=== PATIENT | female | born 1955 | race Caucasian/White ===

== ENCOUNTER 2017-06-19 11:10 | Emergency (ER) | payer MEDICAID, SELFPAY ==
[2017-06-19 12:13] VITALS: BP 133/70; PULSE 89; RESP 20; TEMP 36.6; O2SAT 94; BMI 29.6
--- NOTE | 2017-06-19 13:12 | HMH.EDUTC ---
[facility] [place]: Influenza Right lower lobe pneumonia Qualifiers: Pneumonia type: due to unspecified organism Qualified Code(s): J18.1 - Lobar pneumonia, unspecified organism Disposition: Home, Self-Care Condition on Discharge: Good Instructions: Pneumonia-Adult Additional Instructions: Drink lots of fluids and take Tylenol or Ibuprofen for fever and aches and pains Prescriptions: Oseltamivir Phosphate [Tamiflu 75mg Capsule] 75 mg PO BID 5 Days #10 capsule Referrals: Jimbo Vital MD [Primary Care Provider] - Medical Decision Making Vital Signs: 06/19/17 12:13 06/19/17 14:45 06/19/17 16:44 Temperature 98 F 99.2 F 98.6 F Temperature Source Temporal Artery Scan Oral Oral Pulse Rate Pulse Rate [Right Radial] 89 110 H 83 Respiratory Rate 20 18 20 Blood Pressure Blood Pressure [Right Arm] 133/70 110/72 102/58 Blood Pressure Mean [Right Arm] 91 84 72 Blood Pressure Source Blood Pressure Source [Right Arm] Automatic Cuff Automatic Cuff Automatic Cuff Blood Pressure Position Blood Pressure Position [Right Arm] Sitting Sitting Sitting 02 Sat by Pulse Oximetry 94 L 92 L 94 L Oxygen Delivery Method Room Air Room Air Room Air 06/19/17 16:58 Temperature 98.6 F Temperature Source Oral Pulse Rate 76 Pulse Rate [Right Radial] Respiratory Rate 20 Blood Pressure 116/75 Blood Pressure [Right Arm] Blood Pressure Mean [Right Arm] Blood Pressure Source Automatic Cuff Blood Pressure Source [Right Arm] Blood Pressure Position Sitting Blood Pressure Position [Right Arm] 02 Sat by Pulse Oximetry Oxygen Delivery Method Room Air - Lab Data Lab Results 06/19/17 13:35: WBC 21.0 H*, RBC 4.75, Hgb 13.7, Hct 41.2, MCV 86.7, MCH 28.8, MCHC 33.2, RDW 12.8, Plt Count 238, MPV 7.7, Neut % (Auto) 88.2 H, Lymph % (Auto) 5.9 L, [place] % (Auto) 5.5, Eos % (Auto) 0.2, Baso % (Auto) 0.2, Neut # (Auto) 18.5 H, Lymph # (Auto) 1.2, [place] # (Auto) 1.2 H, Eos # (Auto) 0.1, Baso # (Auto) 0.0, Total Counted 100, Neutrophils % (Manual) 82 H, Band Neutrophils % 5.0, Lymphocytes % (Manual) 3 L, Atypical Lymphs % 1.0, Monocytes % (Manual) 8, Eosinophils % (Manual) 1, Platelet Estimate Normal, RBC Morphology Normal 06/19/17 13:35: Sodium 133 L, Potassium 3.3 L, Chloride 95 L, Carbon Dioxide 28, Anion Gap 13.3, BUN 7, Creatinine 0.93, Estimated Creat Clear 66, Estimated GFR > 60, Est GFR ( Amer) > 60, Glucose 159 H 06/19/17 13:35: Lactic Acid 1.0 Result diagrams: 06/19/17 13:35 06/19/17 13:35 Orders (Tests/Meds): ED MEDICATIONS Discontinued Medications Generic Name Dose Route Start Last Admin Trade Name Freq PRN Reason Stop Dose Admin Sodium Chloride 1,000 mls @ 999 mls/hr 06/19/17 14:45 06/19/17 15:21 Sod Chloride 0.9% 1000ml Bag IV 06/19/17 15:45 999 mls/hr .Q1H1M AQUILINO Administration Levofloxacin/Dextrose 500 mg in 100 mls @ 100 mls/hr 06/19/17 14:45 06/19/17 15:23 Levaquin 500mg/100ml Premix IV 07/03/17 14:44 100 mls/hr Q24H AQUILINO Administration ORDERS Category Date Time Status Blood Culture Stat Micro 06/19/17 15:00 Received - Radiology Data #1 Image(s): Chest Image Reviewed: Yes I reviewed the patient's radiology image, Yes I have reviewed radiologist's interpretation RLL pneumonia - Physician Consults Physician Consulted: Dr. Baer, environmental professional for PCP, Dr Vital Time: 14:10 Reason -: Pt condition Comment/Response: Discussed PMHx, HPI, exam, labs, CXR. Pt needs 1L fluids, IV solu medrol and IV antibiotic. If looking better, discharge home on po antibiotics with FU Wednesday. Additional Consult: Dr. Alvarez, ER Time: 14:15 Reason -: Pt condition Comment/Response: Discussed PMHx, HPI, exam, labs, CXR. Aware of discussion w/ Dr. Baer. Pt needs 1L fluids, IV solu medrol and IV antibiotic. If looking better, discharge home on po antibiotics with FU Wednesday. - Javier Inquiry Pt receiving controlled substance: No - Reevaluation(s) Time: 14:28
--- NOTE | 2017-06-19 13:18 | ED_ITS ---
[facility] [place]: Influenza Right lower lobe pneumonia Qualifiers: Pneumonia type: due to unspecified organism Qualified Code(s): J18.1 - Lobar pneumonia, unspecified organism Disposition: Home, Self-Care Condition on Discharge: Good Instructions: Pneumonia-Adult Additional Instructions: Drink lots of fluids and take Tylenol or Ibuprofen for fever and aches and pains Prescriptions: Oseltamivir Phosphate [Tamiflu 75mg Capsule] 75 mg PO BID 5 Days #10 capsule Referrals: Jimbo Vital MD [Primary Care Provider] - Medical Decision Making Vital Signs: 06/19/17 12:13 06/19/17 14:45 06/19/17 16:44 Temperature 98 F 99.2 F 98.6 F Temperature Source Temporal Artery Scan Oral Oral Pulse Rate Pulse Rate [Right Radial] 89 110 H 83 Respiratory Rate 20 18 20 Blood Pressure Blood Pressure [Right Arm] 133/70 110/72 102/58 Blood Pressure Mean [Right Arm] 91 84 72 Blood Pressure Source Blood Pressure Source [Right Arm] Automatic Cuff Automatic Cuff Automatic Cuff Blood Pressure Position Blood Pressure Position [Right Arm] Sitting Sitting Sitting 02 Sat by Pulse Oximetry 94 L 92 L 94 L Oxygen Delivery Method Room Air Room Air Room Air 06/19/17 16:58 Temperature 98.6 F Temperature Source Oral Pulse Rate 76 Pulse Rate [Right Radial] Respiratory Rate 20 Blood Pressure 116/75 Blood Pressure [Right Arm] Blood Pressure Mean [Right Arm] Blood Pressure Source Automatic Cuff Blood Pressure Source [Right Arm] Blood Pressure Position Sitting Blood Pressure Position [Right Arm] 02 Sat by Pulse Oximetry Oxygen Delivery Method Room Air - Lab Data Lab Results 06/19/17 13:35: WBC 21.0 H*, RBC 4.75, Hgb 13.7, Hct 41.2, MCV 86.7, MCH 28.8, MCHC 33.2, RDW 12.8, Plt Count 238, MPV 7.7, Neut % (Auto) 88.2 H, Lymph % (Auto ) 5.9 L, [place] % (Auto) 5.5, Eos % (Auto) 0.2, Baso % (Auto) 0.2, Neut # (Auto) 18.5 H, Lymph # (Auto) 1.2, [place] # (Auto) 1.2 H, Eos # (Auto) 0.1, Baso # (Auto ) 0.0, Total Counted 100, Neutrophils % (Manual) 82 H, Band Neutrophils % 5.0, Lymphocytes % (Manual) 3 L, Atypical Lymphs % 1.0, Monocytes % (Manual) 8, Eosinophils % (Manual) 1, Platelet Estimate Normal, RBC Morphology Normal 06/19/17 13:35: Sodium 133 L, Potassium 3.3 L, Chloride 95 L, Carbon Dioxide 28 , Anion Gap 13.3, BUN 7, Creatinine 0.93, Estimated Creat Clear 66, Estimated GFR > 60, Est GFR ( Amer) > 60, Glucose 159 H 06/19/17 13:35: Lactic Acid 1.0 Result diagrams: 06/19/17 13:35 06/19/17 13:35 Orders (Tests/Meds): ED MEDICATIONS Discontinued Medications Generic Name Dose Route Start Last Admin Trade Name Freq PRN Reason Stop Dose Admin Sodium Chloride 1,000 mls @ 999 mls/hr 06/19/17 14:45 06/19/17 15:21 Sod Chloride 0.9% 1000ml Bag IV 06/19/17 15:45 999 mls/hr .Q1H1M AQUILINO Administration Levofloxacin/Dextrose 500 mg in 100 mls @ 100 mls/hr 06/19/17 14:45 06/19/17 15:23 Levaquin 500mg/100ml Premix IV 07/03/17 14:44 100 mls/hr Q24H AQUILINO Administration ORDERS Category Date Time Status Blood Culture Stat Micro 06/19/17 15:00 Received - Radiology Data #1 Image(s): Chest Image Reviewed: Yes I reviewed the pat
--- NOTE | 2017-06-19 13:18 | XR_ITS ---
XR chest 2V HISTORY: Cough and fever ITS.REASON: flu + earlier in the week, now cough and fever new ORDERING PHYSICIAN: Efra Hawley PATIENT AGE: 61 years COMPARISON: None available FINDINGS: The cardiomediastinal silhouette and pulmonary vascularity are within normal limits. There is consolidation in the right lower lobe anteriorly and to a lesser degree posteriorly consistent with pneumonia. No obvious effusions. No acute bony abnormalities. IMPRESSION: Right lower lobe pneumonia
[2017-06-19 13:45] LABS: Basophils % 0.2 % (0.1-2.0); Eosinophils # 0.1 K/mm3 (0.0-0.4); Eosinophils % 0.2 % (0.1-12.0); Hematocrit 41.2 % (37.0-47.0); Hemoglobin 13.7 g/dL (12.2-16.2); Lymphocytes # 1.2 K/mm3 (0.7-4.5); Lymphocytes % 5.9 K/mm3 (10-50); Mean Corpuscular HGB Conc 33.2 g/dL (31.8-35.4); Mean Corpuscular Hemoglobin 28.8 pg (27.0-31.2); Mean Corpuscular Volume 86.7 fl (81-99); Mean Platelet Volume 7.7 fl (7.4-10.4); Monocytes # 1.2 K/mm3 (0.1-1.0); Monocytes % 5.5 % (1.7-9.3); Neutrophils # 18.5 K/mm3 (1.8-7.8); Neutrophils % 88.2 % (37.0-80.0); Platelet Count 238 K/mm3 (142-424); Red Blood Count 4.75 M/mm3 (4.20-5.40); Red Cell Distribution Width 12.8 % (11.5-17.5)
[2017-06-19 13:47] LABS: MANUAL DIFFERENTIAL MANUAL DIFFERENTIAL (MANUAL DIFF)
[2017-06-19 13:50] LABS: Anion Gap 13.3 mEq/L (5-15); Blood Urea Nitrogen 7 mg/dL (7-18); Carbon Dioxide 28 mmol/L (21.0-32.0); Chloride 95 mmol/L (98-107); Creatinine Clearance Estimated 66 mL/min (0-300); Creatinine,Serum 0.93 mg/dL (0.55-1.02); Estimated Glomerular Filt Rate > 60 ml/min (>60); GFR (African American) > 60 ML/MIN (>60); Glucose 159 mg/dL (74-106); Potassium 3.3 mmoL/L (3.5-5.1); Sodium 133 mmol/L (136-145)
[2017-06-19 14:29] LABS: Eosinophils % 1 % (0-3); Lymphocytes % 3 % (10-50); Monocytes % 8 % (2-9); Neutrophils % 82 % (42-76); Platelet Estimate Normal; RBC Morphology Normal; Total Cells Counted 100
[2017-06-19 14:45] VITALS: BP 110/72; PULSE 110; RESP 18; TEMP 37.3; O2SAT 92; BMI 28.3
--- NOTE | 2017-06-19 14:52 | PC.NURSE ---
lab at collecting blood cultures
--- NOTE | 2017-06-19 15:22 | HMH.EDGENADL ---
ED Disposition Clinical Impression: Influenza Right lower lobe pneumonia Qualifiers: Pneumonia type: due to unspecified organism Qualified Code(s): J18.1 - Lobar pneumonia, unspecified organism Disposition: Home, Self-Care Condition on Discharge: Fair Instructions: Pneumonia-Adult Additional Instructions: Drink lots of fluids and take Tylenol or Ibuprofen for fever and aches and pains Prescriptions: Oseltamivir Phosphate [Tamiflu 75mg Capsule] 75 mg PO BID 5 Days #10 capsule Referrals: Jimbo Vital MD [Primary Care Provider] - Time of Disposition: 16:30 - Critical Care Critical Care Time: No Attestation: On 06/19/17, the high probability of a clinically significant, sudden or life threatening deterioration of the following system(s) required my full and direct attention, intervention and personal management. The time I documented below is in addition to time spent performing reported procedures but includes the following listed in this critical care notation. Medical Decision Making - Medical Records Medical records reviewed: Yes: I reviewed the patient's medical records. Vital Signs: 06/19/17 12:13 06/19/17 14:45 Temperature 98 F 99.2 F Temperature Source Temporal Artery Scan Oral Pulse Rate [Right Radial] 89 110 H Respiratory Rate 20 18 Blood Pressure [Right Arm] 133/70 110/72 Blood Pressure Mean [Right Arm] 91 84 Blood Pressure Source [Right Arm] Automatic Cuff Automatic Cuff Blood Pressure Position [Right Arm] Sitting Sitting 02 Sat by Pulse Oximetry 94 L 92 L Oxygen Delivery Method Room Air Room Air - Lab Data Lab results reviewed: Yes: I reviewed the patient's lab results. Lab Results 06/19/17 13:35: WBC 21.0 H*, RBC 4.75, Hgb 13.7, Hct 41.2, MCV 86.7, MCH 28.8, MCHC 33.2, RDW 12.8, Plt Count 238, MPV 7.7, Neut % (Auto) 88.2 H, Lymph % (Auto) 5.9 L, [place] % (Auto) 5.5, Eos % (Auto) 0.2, Baso % (Auto) 0.2, Neut # (Auto) 18.5 H, Lymph # (Auto) 1.2, [place] # (Auto) 1.2 H, Eos # (Auto) 0.1, Baso # (Auto) 0.0, Total Counted 100, Neutrophils % (Manual) 82 H, Band Neutrophils % 5.0, Lymphocytes % (Manual) 3 L, Atypical Lymphs % 1.0, Monocytes % (Manual) 8, Eosinophils % (Manual) 1, Platelet Estimate Normal, RBC Morphology Normal 06/19/17 13:35: Sodium 133 L, Potassium 3.3 L, Chloride 95 L, Carbon Dioxide 28, Anion Gap 13.3, BUN 7, Creatinine 0.93, Estimated Creat Clear 66, Estimated GFR > 60, Est GFR ( Amer) > 60, Glucose 159 H 06/19/17 13:35: Lactic Acid 1.0 Result diagrams: 06/19/17 13:35 06/19/17 13:35 Orders (Tests/Meds): ED MEDICATIONS Generic Name Dose Route Start Last Admin Trade Name Freq PRN Reason Stop Dose Admin Sodium Chloride 1,000 mls @ 999 mls/hr 06/19/17 14:45 Sod Chloride 0.9% 1000ml Bag IV 06/19/17 15:45 .Q1H1M AQUILINO Levofloxacin/Dextrose 500 mg in 100 mls @ 100 mls/hr 06/19/17 14:45 Levaquin 500mg/100ml Premix IV 07/03/17 14:44 Q24H AQUILINO ORDERS Category Date Time Status Blood Culture Stat Micro 06/19/17 14:39 Ordered - Radiology Data #1 Image Reviewed: Yes I reviewed the patient's radiology results, Yes I reviewed the patient's radiology image, Yes I have reviewed radiologist's interpretation, Yes I reviewed the patient's radiology image w/the ED provider - Javier Inquiry Pt receiving controlled substance: No Javier was queried for this patient: No General Adult HPI - General Chief complaint: Weakness Stated complaint: Cough, Fever Time Seen by Provider: 06/19/17 15:22 Mode of Arrival: Ambulatory Source of Information: Patient Limitations: No Limitations Description of Symptoms (Recalled from ER Triage Doc. by RN): Pt reports flu positive last week, not feeling any better after finishing tamiflu - History of Present Illness Onset (ago): day(s) Location: head, chest Radiation: non-radiation Severity: moderate Severity scale (1-10): 4 Quality: aching Consistency: constant Relieving factors: none, o
--- NOTE | 2017-06-19 15:30 | ED_ITS ---
ED Disposition Clinical Impression: Influenza Right lower lobe pneumonia Qualifiers: Pneumonia type: due to unspecified organism Qualified Code(s): J18.1 - Lobar pneumonia, unspecified organism Disposition: Home, Self-Care Condition on Discharge: Fair Instructions: Pneumonia-Adult Additional Instructions: Drink lots of fluids and take Tylenol or Ibuprofen for fever and aches and pains Prescriptions: Oseltamivir Phosphate [Tamiflu 75mg Capsule] 75 mg PO BID 5 Days #10 capsule Referrals: Jimbo Vital MD [Primary Care Provider] - Time of Disposition: 16:30 - Critical Care Critical Care Time: No Attestation: On 06/19/17, the high probability of a clinically significant, sudden or life threatening deterioration of the following system(s) required my full and direct attention, intervention and personal management. The time I documented below is in addition to time spent performing reported procedures but includes the following listed in this critical care notation. Medical Decision Making - Medical Records Medical records reviewed: Yes: I reviewed the patient's medical records. Vital Signs: 06/19/17 12:13 06/19/17 14:45 Temperature 98 F 99.2 F Temperature Source Temporal Artery Scan Oral Pulse Rate [Right Radial] 89 110 H Respiratory Rate 20 18 Blood Pressure [Right Arm] 133/70 110/72 Blood Pressure Mean [Right Arm] 91 84 Blood Pressure Source [Right Arm] Automatic Cuff Automatic Cuff Blood Pressure Position [Right Arm] Sitting Sitting 02 Sat by Pulse Oximetry 94 L 92 L Oxygen Delivery Method Room Air Room Air - Lab Data Lab results reviewed: Yes: I reviewed the patient's lab results. Lab Results 06/19/17 13:35: WBC 21.0 H*, RBC 4.75, Hgb 13.7, Hct 41.2, MCV 86.7, MCH 28.8, MCHC 33.2, RDW 12.8, Plt Count 238, MPV 7.7, Neut % (Auto) 88.2 H, Lymph % (Auto ) 5.9 L, [place] % (Auto) 5.5, Eos % (Auto) 0.2, Baso % (Auto) 0.2, Neut # (Auto) 18.5 H, Lymph # (Auto) 1.2, [place] # (Auto) 1.2 H, Eos # (Auto) 0.1, Baso # (Auto ) 0.0, Total Counted 100, Neutrophils % (Manual) 82 H, Band Neutrophils % 5.0, Lymphocytes % (Manual) 3 L, Atypical Lymphs % 1.0, Monocytes % (Manual) 8, Eosinophils % (Manual) 1, Platelet Estimate Normal, RBC Morphology Normal 06/19/17 13:35: Sodium 133 L, Potassium 3.3 L, Chloride 95 L, Carbon Dioxide 28 , Anion Gap 13.3, BUN 7, Creatinine 0.93, Estimated Creat Clear 66, Estimated GFR > 60, Est GFR ( Amer) > 60, Glucose 159 H 06/19/17 13:35: Lactic Acid 1.0 Result diagrams: 06/19/17 13:35 06/19/17 13:35 Orders (Tests/Meds): ED MEDICATIONS Generic Name Dose Route Start Last Admin Trade Name Freq PRN Reason Stop Dose Admin Sodium Chloride 1,000 mls @ 999 mls/hr 06/19/17 14:45 Sod Chloride 0.9% 1000ml Bag IV 06/19/17 15:45 .Q1H1M AQUILINO Levofloxacin/Dextrose 500 mg in 100 mls @ 100 mls/hr 06/19/17 14:45 Levaquin 500mg/100ml Premix IV 07/03/17 14:44 Q24H AQUILINO ORDERS Category Date Time Status Blood Culture Stat Micro 06/19/17 14:39 Ordered - Radiology Data #1 Image Reviewed: Yes I reviewed the patient's radiology results, Yes I reviewed the patient's radiology image, Yes I have reviewed radiologist's interpretation , Yes I reviewed the patient's radiology image w/the ED provider - Javier Inquiry Pt receiving controlled substance: No Javier garza
[2017-06-19 16:44] VITALS: BP 102/58; PULSE 83; RESP 20; TEMP 37; O2SAT 94
[2017-06-19 16:58] VITALS: BP 116/75; PULSE 76; RESP 20; TEMP 37; O2SAT 94
== END 2017-06-19 16:59 | disposition home or self-care (01) ==
LOC: UTC 14:31 → ER 14:37
PROVIDERS: Nurse Practitioner Family; Emergency Provider General Practice; PCP Family Medicine
DX: J18.1 Lobar pneumonia, unspecified organism (principal)
CPT/HCPCS: 36415; 71046; 80048; 83605; 85007; 85025; 87040; 96365; 96367; 99284; J1956